=== PATIENT | female | born 1995 | race African-American/Black ===

== ENCOUNTER 2017-01-26 17:07 | Emergency (ER) | payer MEDICAID ==
[~2017-01-26] VITALS: Ht 170.2 cm; Wt 49.9 kg
[2017-01-26 17:33] VITALS: BP 121/81
== END 2017-01-26 20:59 | disposition left against medical advice (07) ==
LOC: ER 17:17
DX: M54.9 Dorsalgia, unspecified (principal); Z53.21 Procedure and treatment not carried out due to patient leaving prior to being seen by health care provider; V43.62XA Car passenger injured in collision with other type car in traffic accident, initial encounter; Y93.89 Activity, other specified; Y92.89 Other specified places as the place of occurrence of the external cause; Y99.8 Other external cause status

== ENCOUNTER 2017-01-27 11:02 | Emergency (ER) | payer MEDICAID ==
[~2017-01-27] VITALS: Ht 165.1 cm; Wt 49.9 kg
[2017-01-27 11:13] VITALS: BP 113/69
== END 2017-01-27 14:09 | disposition home or self-care (01) ==
LOC: ER 11:02
DX: S16.1XXA Strain of muscle, fascia and tendon at neck level, initial encounter (principal); V43.52XA Car driver injured in collision with other type car in traffic accident, initial encounter; Y93.89 Activity, other specified; Y92.410 Unspecified street and highway as the place of occurrence of the external cause; Y99.8 Other external cause status
CPT/HCPCS: 72040

== ENCOUNTER 2019-09-09 11:49 | Emergency (ER) | payer OTHER, MEDICAID ==
[~2019-09-09] VITALS: Ht 165.1 cm; Wt 49.9 kg
[2019-09-09 12:40] VITALS: BP 127/86
[2019-09-09] MEDS ORDERED: METHOCARBAMOL 500 MG TAB PO ONE (13:15)
[2019-09-09] MEDS ORDERED: IBUPROFEN 600 MG TAB PO ONE (13:15)
== END 2019-09-09 14:14 | disposition home or self-care (01) ==
LOC: ER 11:49 → EDBD 11:49 → ER 14:14
DX: R07.81 Pleurodynia (principal); H93.12 Tinnitus, left ear
CPT/HCPCS: 71101

== ENCOUNTER 2020-06-25 23:29 | Emergency (ER) | payer MEDICAID ==
[~2020-06-25] VITALS: Ht 167.6 cm; Wt 50.3 kg
[2020-06-26 03:50] VITALS: BP 129/56
[2020-06-26] MEDS ORDERED: ACETAMINOPHEN 325 MG TAB PO ONE (04:00)
== END 2020-06-26 06:14 | disposition left against medical advice (07) ==
LOC: ER 23:45
DX: M79.672 Pain in left foot (principal); Z53.21 Procedure and treatment not carried out due to patient leaving prior to being seen by health care provider
CPT/HCPCS: 73630

== ENCOUNTER 2022-10-31 19:07 | Emergency (ER) | payer MEDICAID ==
[~2022-10-31] VITALS: Ht 160 cm; Wt 65.9 kg
[2022-10-31 19:24] VITALS: BP 122/70; PULSE 80; RESP 16; O2SAT 98
== END 2022-11-01 00:39 | disposition left against medical advice (07) ==
LOC: EDBD 19:07 → ER 19:07
DX: K08.89 Other specified disorders of teeth and supporting structures (principal); Z53.21 Procedure and treatment not carried out due to patient leaving prior to being seen by health care provider

== ENCOUNTER 2023-03-20 18:36 | Emergency (ER) | payer MEDICAID ==
[~2023-03-20] VITALS: Ht 167.6 cm; Wt 54.5 kg
[2023-03-20 18:50] VITALS: BP 127/81; PULSE 102; RESP 18; O2SAT 97
== END 2023-03-20 22:54 | disposition left against medical advice (07) ==
LOC: ER 18:36 → EDBD 18:36 → ER 22:54
DX: S00.81XA Abrasion of other part of head, initial encounter (principal); S80.211A Abrasion, right knee, initial encounter; Z53.21 Procedure and treatment not carried out due to patient leaving prior to being seen by health care provider; V49.9XXA Car occupant (driver) (passenger) injured in unspecified traffic accident, initial encounter; Y93.89 Activity, other specified; Y92.410 Unspecified street and highway as the place of occurrence of the external cause; Y99.8 Other external cause status

== ENCOUNTER 2024-12-01 15:10 | Emergency (ER) | payer MEDICAID ==
[~2024-12-01] VITALS: Ht 167.6 cm; Wt 54.0 kg
[2024-12-01 15:12] VITALS: BP 135/87; PULSE 65; RESP 15; TEMP 97.3; O2SAT 100
== END 2024-12-01 18:35 | disposition left against medical advice (07) ==
LOC: ER 15:10
DX: M25.512 Pain in left shoulder (principal); Z53.21 Procedure and treatment not carried out due to patient leaving prior to being seen by health care provider